=== PATIENT | male | born 1995 | race African-American/Black ===

== ENCOUNTER 2017-11-09 01:00 | Emergency (ER) | payer OTHER ==
[~2017-11-09] VITALS: Ht 167.6 cm; Wt 86.0 kg
[2017-11-09 01:33] LABS: PLATELET COUNT 304 K/uL (142-355)
[2017-11-09 01:45] LABS: POTASSIUM 3.6 mmol/L (3.6-5.2)
[2017-11-09 02:16] VITALS: BP 92/68; TEMP 99.5
== END 2017-11-09 02:19 | disposition home or self-care (01) ==
LOC: ED 01:00
DX: F41.9 Anxiety disorder, unspecified (principal)
CPT/HCPCS: 36415; 80053; 85027; 93005; 99283